=== PATIENT | female | born 1995 | race Caucasian/White ===

== ENCOUNTER 2017-12-29 17:14 | Emergency (ER) | payer OTHER ==
[~2017-12-29] VITALS: Ht 154.9 cm; Wt 63.5 kg
== END 2017-12-29 22:36 | disposition home or self-care (01) ==
LOC: ER 17:14
DX: K29.70 Gastritis, unspecified, without bleeding (principal); R11.2 Nausea with vomiting, unspecified

== ENCOUNTER 2018-02-13 23:18 | Emergency (ER) | payer OTHER ==
[~2018-02-13] VITALS: Ht 182.9 cm; Wt 68.0 kg
[2018-02-14] MEDS ORDERED: ORPHENADRINE C100 MG PO (05:00)
[2018-02-14] MEDS ORDERED: KETO10TA2 PO (05:00)
== END 2018-02-14 05:22 | disposition home or self-care (01) ==
LOC: ER 23:18
DX: S30.1XXA Contusion of abdominal wall, initial encounter (principal); S20.212A Contusion of left front wall of thorax, initial encounter; S20.211A Contusion of right front wall of thorax, initial encounter; W22.8XXA Striking against or struck by other objects, initial encounter; Y93.67 Activity, basketball; Y92.89 Other specified places as the place of occurrence of the external cause; Y99.8 Other external cause status

== ENCOUNTER 2019-02-10 15:19 | Outpatient (CLI) | payer OTHER ==
[~2019-02-10 15:19] MED LIST: KETO10TA2 PO; ORPHENADRINE C100 MG PO
== END 2019-02-10 17:14 | disposition home or self-care (01) ==
LOC: MRI 15:19
DX: E11.9 Type 2 diabetes mellitus without complications (principal); I10 Essential (primary) hypertension; I63.50 Cerebral infarction due to unspecified occlusion or stenosis of unspecified cerebral artery
CPT/HCPCS: 73721